=== PATIENT | female | born 1985 | race Caucasian/White ===

== ENCOUNTER 2021-01-10 16:38 | Emergency (ER) | payer MEDICAID ==
--- NOTE | 2021-01-10 16:54 | EDM.PDOC ---
ED HPI GENERAL MEDICAL PROBLEM - General Chief Complaint: General Stated Complaint: CANCER COMPLICATIONS Time Seen by Provider: 01/10/21 16:51 - History of Present Illness INITIAL COMMENTS - FREE TEXT/NARRATIVE: History of present illness: [] The patient is said. She says her fianc throughout today. He had a accessibility lift technician bring her to the backside of the hospital between the cancer center in the employee entrance where she was found. She had been dropped off on the wrong side by a forklift picker and she called admissions and told them that she was on the wrong side of the hospital. She was laying face down and they found her on the sidewalk. She was brought by wheelchair to the emergency department. She is tearful and sad and apologetic. She says 6 months ago she was diagnosed with some sort of cancer all over her body. The diagnosis was made at the [facility] in [facility] where she lived. She said she did not want treatment and she treated her total body pain with alcohol. She says she hurts everywhere and she is suffering. She denies being suicidal. She does feel hopeless and does not have anywhere to go because she is moved from [facility] with her fianc. She says he drinks all the time and is never sober but he throughout today because she drinks a lot of the time and is not happy when she is sober. Review of systems: As per history of present illness and below otherwise all systems reviewed and negative. Past medical history: As per history of present illness and as reviewed below otherwise noncontributory. Surgical history: As per history of present illness and as reviewed below otherwise noncontributory. Social history: No reported history of drug or alcohol abuse. Family history: As per history of present illness and as reviewed below otherwise n oncontributory. Physical exam: Constitutional - well developed, well-nourished and in no acute distress HEENT - normocephalic, no evidence of trauma - external nose and mouth normal - no mass in neck and no JVD - mucosae moist EYES - full EOM, PERRL, no icterus - no evidence of inflammation, injection, or drainage Respiratory - no respiratory distress, equal bilateral expansion, lungs clear to auscultation and no abnormal lung sounds Cardiovascular - Regular Rhythm with S1 and S2 appreciated and no murmur, gallop or rub. GI - abdomen soft without distension or organomegaly - normal bowel sounds - no guard or rebound Musculoskeletal no gross deformity of long bones or joints - no tenderness, swelling or edema Neurologic - Alert and oriented times four - CN II-XII grossly intact - motor sensory and coordination symmetrically normal Psychiatric -depressed and tearful with normal thought content Hematologic - No petechiae or purpura - mucosa appropriate color and sclera not pale - normal nail bed color and refill Integument - no rash or evidence of trauma - normal turgor Diagnostics: [] Therapeutics: [] Impression: [] Plan: [] Definitive disposition and diagnosis as appropriate pending reevaluation and review of above. Whole Body Pain Score (Numeric/FACES): 10 - Related Data Allergies Allergy/AdvReac Type Severity Reaction Status Date / Time No Known Allergies Allergy Verified 01/10/21 17:00 Home Meds: Home Meds Levothyroxine Sodium [Synthroid] 1 tab PO DAILY 01/10/21 [History] nitrofurantoin macrocrystaL [Macrodantin] 100 mg PO BID 7 Days #28 cap 01/10/21 [Rx] ED ROS GENERAL - Review of Systems Review Of Systems: Comprehensive ROS is negative, except as noted in HPI. ED EXAM, GENERAL - Physical Exam Exam: See Below Free Text/Narrative:: My physical exam as in the HPI #1 Interpretation EKG Interpretation Comments: EKG sinus tachycardia heart rate 102 HI 139 [place] [address] and T. Impression normal Course - Vital Signs Text/Narrative:: Patient's fianc came to pick her up Last Recorded V/S: Last Vital Signs Temp 36.0 C L 01/10/21 16:55 Pulse 114 H 01/10/21 16:55 Resp 19 01/10/21 16:55 BP 157/111 H 01/10/21 16:55 Pulse Ox 96 01/10/21 16:55 - Orders/Labs/Meds Orders: Active Orders 24 hr Category Date Time Status EKG Documentation Completion [RC] AM Care 01/10/21 16:52 Active CULTURE URINE [MREF] Stat Lab 01/10/21 18:25 Ordered DRUG SCREEN, URINE [URCHEM] Stat Lab 01/10/21 16:53 Ordered Labs: Laboratory Tests 01/10/21 01/10/21 01/10/21 Range/Units 17:00 17:00 17:00 WBC 4.65 (4.0-11.0) K/uL RBC 3.50 L (4.30-5.90) M/uL Hgb 12.7 (12.0-16.0) g/dL Hct 36.6 (36.0-46.0) % MCV 104.6 H (80.0-98.0) fL MCH 36.3 H (27.0-32.0) pg MCHC 34.7 (31.0-37.0) g/dL RDW Std Deviation 50.9 (28.0-62.0) fl RDW Coeff of Micah 14 (11.0-15.0) % Plt Count 145 L (150-400) K/uL MPV 8.50 (7.40-12.00) fL Neut % (Auto) 69.9 (48.0-80.0) % Lymph % (Auto) 21.7 (16.0-40.0) % Sanders % (Auto) 7.1 (0.0-15.0) % Eos % (Auto) 0.2 (0.0-7.0) % Baso % (Auto) 1.1 (0.0-1.5) % Neut # (Auto) 3.3 (1.4-5.7) K/uL Lymph # (Auto) 1.0 (0.6-2.4) K/uL Sanders # (Auto) 0.3 (0.0-0.8) K/uL Eos # (Auto) 0.0 (0.0-0.7) K/uL Baso # (Auto) 0.1 (0.0-0.1) K/uL Nucleated RBC % 0.0 /100WBC Nucleated RBCs # 0 K/uL Sodium 145 (136-145) mmol/L Potassium 2.9 L (3.5-5.1) mmol/L Chloride 104 (98-107) mmol/L Carbon Dioxide 25.8 (21.0-32.0) mmol/L BUN 3 L (7.0-18.0) mg/dL Creatinine 0.6 (0.6-1.0) mg/dL Est Cr Clr Drug Dosing 107.23 mL/min Estimated GFR (MDRD) > 60.0 ml/min Glucose 244 H (74-106) mg/dL Calcium 7.7 L (8.5-10.1) mg/dL Total Bilirubin 0.4 (0.2-1.0) mg/dL AST 409 H (15-37) IU/L ALT 132 H (14-63) IU/L Alkaline Phosphatase 203 H (46-116) U/L Troponin I < 0.050 (0.000-0.056) ng/mL Total Protein 7.0 (6.4-8.2) g/dL Albumin 3.6 (3.4-5.0) g/dL Globulin 3.4 (2.6-4.0) g/dL Albumin/Globulin Ratio 1.1 (0.9-1.6) HCG, Qual NEGATIVE (NEG) Urine Color Urine Appearance Urine pH (5.0-8.0) Ur Specific Rockwell (1.001-1.035) Urine Protein (NEGATIVE) mg/dL Urine Glucose (UA) (NEGATIVE) mg/dL Urine Ketones (NEGATIVE) mg/dL Urine Occult Blood (NEGATIVE) Urine Nitrite (NEGATIVE) Urine Bilirubin (NEGATIVE) Urine Urobilinogen (<2.0) EU/dL Ur Leukocyte Esterase (NEGATIVE) Urine RBC (0-2/HPF) Urine WBC (0-5/HPF) Ur Epithelial Cells (NONE-FEW) Urine Bacteria (NEGATIVE) Ethyl Alcohol 493 mg/dL 01/10/21 Range/Units 18:05 WBC (4.0-11.0) K/uL RBC (4.30-5.90) M/uL Hgb (12.0-16.0) g/dL Hct (36.0-46.0) % MCV (80.0-98.0) fL MCH (27.0-32.0) pg MCHC (31.0-37.0) g/dL RDW Std Deviation (28.0-62.0) fl RDW Coeff of Micah (11.0-15.0) % Plt Count (150-400) K/uL MPV (7.40-12.00) fL Neut % (Auto) (48.0-80.0) % Lymph % (Auto) (16.0-40.0) % Sanders % (Auto) (0.0-15.0) % Eos % (Auto) (0.0-7.0) % Baso % (Auto) (0.0-1.5) % Neut # (Auto) (1.4-5.7) K/uL Lymph # (Auto) (0.6-2.4) K/uL Sanders # (Auto) (0.0-0.8) K/uL Eos # (Auto) (0.0-0.7) K/uL Baso # (Auto) (0.0-0.1) K/uL Nucleated RBC % /100WBC Nucleated RBCs # K/uL Sodium (136-145) mmol/L Potassium (3.5-5.1) mmol/L Chloride (98-107) mmol/L Carbon Dioxide (21.0-32.0) mmol/L BUN (7.0-18.0) mg/dL Creatinine (0.6-1.0) mg/dL Est Cr Clr Drug Dosing mL/min Estimated GFR (MDRD) ml/min Glucose (74-106) mg/dL Calcium (8.5-10.1) mg/dL Total Bilirubin (0.2-1.0) mg/dL AST (15-37) IU/L ALT (14-63) IU/L Alkaline Phosphatase (46-116) U/L Troponin I (0.000-0.056) ng/mL Total Protein (6.4-8.2) g/dL Albumin (3.4-5.0) g/dL Globulin (2.6-4.0) g/dL Albumin/Globulin Ratio (0.9-1.6) HCG, Qual (NEG) Urine Color YELLOW Urine Appearance SLT CLOUDY Urine pH 7.0 (5.0-8.0) Ur Specific Rockwell <= 1.005 (1.001-1.035) Urine Protein NEGATIVE (NEGATIVE) mg/dL Urine Glucose (UA) NEGATIVE (NEGATIVE) mg/dL Urine Ketones NEGATIVE (NEGATIVE) mg/dL Urine Occult Blood TRACE-INTACT H (NEGATIVE) Urine Nitrite POSITIVE H (NEGATIVE) Urine Bilirubin NEGATIVE (NEGATIVE) Urine Urobilinogen 0.2 (<2.0) EU/dL Ur Leukocyte Esterase MODERATE H (NEGATIVE) Urine RBC 0-2 (0-2/HPF) Urine WBC 5-10 (0-5/HPF) Ur Epithelial Cells FEW (NONE-FEW) Urine Bacteria 3+ H (NEGATIVE) Ethyl Alcohol mg/dL Meds: Medications Discontinued Medications Generic Name Dose Route Start Last Admin Trade Name Cee PRN Reason Stop Dose Admin Potassium Chloride 40 meq 01/10/21 17:33 01/10/21 18:12 Potassium Chloride 20 Meq Tab.Er PO 01/10/21 17:34 Not Given ONETIME ONE Potassium Chloride Confirm 01/10/21 18:09 01/10/21 18:14 Potassium Chloride 10% 20 Meq/15 Ml Soln 30 Ml Ud Cup Administered 01/10/21 18:10 Not Given Dose 40 meq .ROUTE .STK-MED ONE Potassium Chloride 40 meq 01/10/21 18:12 01/10/21 18:14 Potassium Chloride 10% 20 Meq/15 Ml Soln 15 Ml Ud Cup PO 01/10/21 18:13 40 meq ONETIME ONE Administration Departure - Departure Time of Disposition: 18:26 Disposition: Home, Self-Care 01 Condition: Good Clinical Impression: Alcohol intoxication, Transaminitis, Myalgia, Hypokalemia, Urinary tract infection - Discharge Information Prescriptions: nitrofurantoin macrocrystaL [Macrodantin] 100 mg PO BID 7 Days #28 cap Instructions: Hypokalemia, Muscle Pain, Adult, Alcohol Intoxication, [id number], Urinary Tract Infection, Adult, [id number] Referrals: PCP,Not In Area [Primary Care Provider] - Forms: ED Department Discharge Additional Instructions: Contact AA or psychiatry evaluation at [facility] Address: [address] [place] [address] Hours: walk in 9 AM M-F Get your records from your cancer diagnosis and have them sent to the primary care. [facility] [address] [place] [address] [address] The following information is given to patients seen in the emergency department who are being discharged to home. This information is to outline your options for follow-up care. We provide all patients seen in our emergency department with a follow-up referral. The need for follow-up, as well as the timing and circumstances, are variable depending upon the specifics of your emergency department visit. If you don't have a primary care physician on staff, we will provide you with a referral. We always advise you to contact your personal physician following an emergency department visit to inform them of the circumstance of the visit and for follow-up with them and/or the need for any referrals to a consulting specialist. The emergency department will also refer you to a specialist when appropriate. This referral assures that you have the opportunity for follow-up care with a specialist. All of these measure are taken in an effort to provide you with optimal care, which includes your follow-up. Under all circumstances we always encourage you to contact your private physician who remains a resource for coordinating your care. When calling for follow-up care, please make the office aware that this follow-up is from your recent emergency room visit. If for any reason you are refused follow-up, please contact the [facility] Emergency Department at and asked to speak to the emergency department charge nurse. Sepsis Event Note (ED) - Focused Exam Vital Signs: Vital Signs Temp Pulse Resp BP Pulse Ox 01/10/21 16:55 36.0 C L 114 H 19 157/111 H 96 - My Orders Last 24 Hours: My Active Orders 01/10/21 16:52 EKG Documentation Completion [RC] AM 01/10/21 16:53 DRUG SCREEN, URINE [URCHEM] Stat 01/10/21 18:25 CULTURE URINE [MREF] Stat - Assessment/Plan Last 24 Hours: My Active Orders 01/10/21 16:52 EKG Documentation Completion [RC] AM 01/10/21 16:53 DRUG SCREEN, URINE [URCHEM] Stat 01/10/21 18:25 CULTURE URINE [MREF] Stat
[2021-01-10 17:31] LABS: BLOOD UREA NITROGEN,BUN 3 mg/dL (7.0-18.0); CARBON DIOXIDE,CO2 25.8 mmol/L (21.0-32.0); CHLORIDE,CL 104 mmol/L (98-107); GLUCOSE RANDOM 244 mg/dL (74-106); POTASSIUM,K 2.9 mmol/L (3.5-5.1); SODIUM,NA 145 mmol/L (136-145)
--- NOTE | 2021-01-10 18:03 | CR ---
For Patients: As a result of the Cures Act, medical imaging exams and procedure reports are released immediately into your electronic medical record. You may view this report before your referring provider. If you have questions, please contact your health care provider. INDICATION: Chest pain. TECHNIQUE: Portable AP chest radiograph. COMPARISON: None available. FINDINGS: Low lung volumes with vascular crowding. No focal pulmonary opacity, pneumothorax, or pleural effusion. Normal cardiac and mediastinal contours. IMPRESSION: No acute cardiopulmonary findings. Dictated by Baltazar Eugene MD @ 01/10/2021 6:01:23 PM Dictated by: Baltazar Eugene MD @ 01/10/2021 18:01:28 (Electronically Signed)
[2021-01-10] MEDS: Potassium Chloride 20 MEQ Tab.ER PO ONE ×2 (18:05→18:12)
[2021-01-10] MEDS ORDERED: Potassium Chloride 10% 20 MEQ/15 ML Soln 30 ML UD Cup ONE (18:09)
[2021-01-10] MEDS ORDERED: Potassium Chloride 10% 20 MEQ/15 ML Soln 15 ML UD Cup PO ONE (18:12)
== END 2021-01-10 18:34 | disposition home or self-care (01) ==
LOC: MW.ED 16:38
DX: N39.0 Urinary tract infection, site not specified (principal); F10.129 Alcohol abuse with intoxication, unspecified; E87.6 Hypokalemia; R74.01 Elevation of levels of liver transaminase levels; Y90.8 Blood alcohol level of 240 mg/100 ml or more; Z79.899 Other long term (current) drug therapy
CPT/HCPCS: 36415; 71045; 80053; 80305; 80307; 81001; 84484; 84703; 85025; 87086; 87088; 87186; 93005; 99284; A9270; 93010

== ENCOUNTER 2021-05-01 16:21 | Emergency (ER) | payer SELFPAY ==
--- NOTE | 2021-05-01 17:16 | EDM.PDOC ---
ED HPI GENERAL MEDICAL PROBLEM - General Chief Complaint: Drug or Alcohol Abuse Stated Complaint: INTOXICATION Time Seen by Provider: 05/01/21 17:08 - History of Present Illness INITIAL COMMENTS - FREE TEXT/NARRATIVE: History of present illness: [] Patient has chest pain. She attributed to anxiety. She has had it for 2 days. She has been drinking periods. She wants to stop drinking. AA did not help her because they only talk about drinking all about her emotional problems. She is never been evaluated at [facility]. She does have anxiety does not sleep well and says she is quite tense and thinks this is because of her pain. Pains in the right side worse with movement but not worse with activity. There is no associated diaphoresis or nausea. Patient does have minimal shortness of breath. The patient vapes but does not smoke. She is borderline diabetic. She thinks she has hypertension high cholesterol. She had negative family history of coronary vessel disease and stroke. Review of systems: As per history of present illness and below otherwise all systems reviewed and negative. Past medical history: As per history of present illness and as reviewed below otherwise noncontributory. Surgical history: As per history of present illness and as reviewed below otherwise noncontributory. Social history: No reported history of drug or alcohol abuse. Family history: As per history of present illness and as reviewed below otherwise noncontributory. Physical exam: Constitutional - well developed, well-nourished and in no acute distress HEENT - normocephalic, no evidence of trauma - external nose and mouth normal - no mass in neck and no JVD - mucosae moist EYES - full EOM, PERRL, no icterus - no evidence of inflammation, injection, or drainage Respiratory - no respiratory distress, equal bilateral expansion, lungs clear to auscultation and no abnormal lung sounds Cardiovascular - Regular Rhythm with S1 and S2 appreciated and no murmur, gallop or rub. GI - abdomen soft without distension or organomegaly - normal bowel sounds - no guard or rebound Musculoskeletal tenderness at the right sternal border reproduces her pain-no gross deformity of long bones or joints - no tenderness, swelling or edema Neurologic - Alert and oriented times four - CN II-XII grossly intact - motor sensory and coordination symmetrically normal Psychiatric - appropriate mood and affect with normal thought content Hematologic - No petechiae or purpura - mucosa appropriate color and sclera not pale - normal nail bed color and refill Integument - no rash or evidence of trauma - normal turgor Diagnostics: [] Therapeutics: [] Impression: [] Plan: [] Definitive disposition and diagnosis as appropriate pending reevaluation and review of above. chest Pain Score (Numeric/FACES): 3 - Related Data Allergies Allergy/AdvReac Type Severity Reaction Status Date / Time No Known Allergies Allergy Verified 01/10/21 17:00 Home Meds: Home Meds Levothyroxine Sodium [Synthroid] 1 tab PO DAILY 01/10/21 [History] nitrofurantoin macrocrystaL [Macrodantin] 100 mg PO BID 7 Days #28 cap 01/10/21 [Rx] hydrOXYzine HCL [Atarax] 25 mg PO TID PRN #30 tablet 05/01/21 [Rx] Past Medical History Endocrine/Metabolic History: Reports: Hypothyroidism Other Oncologic History: Pt states she has "cancer affecting her whole body." - Infectious Disease History Infectious Disease History: Reports: None Social & Family History - Family History Family Medical History: No Pertinent Family History ED ROS GENERAL - Review of Systems Review Of Systems: Comprehensive ROS is negative, except as noted in HPI. ED EXAM, GENERAL - Physical Exam Exam: See Below Free Text/Narrative:: My physical exam is in the HPI #1 Interpretation EKG Interpretation Comments: EKG done on 05/01/2021 at 4:36 PM shows sinus rhythm with a heart rate 98 a MO 144 QT duration 460 axis 38 low voltage but borderline T abnormalities especially in the lateral leads compared to 01/10/2021 no change impression no acute Course - Vital Signs Text/Narrative:: Patient eloped shortly before 1820. She did not tell me she was leaving. She most likely has costochondritis and discharge instructions are written. Atarax was sent to the pharmacy. I will get her lab reports and call her back but te chnically her chart will be incomplete because she left before she had a reassessment and vital signs reestablished. Last Recorded V/S: Last Vital Signs Temp 35.8 C L 05/01/21 16:33 Pulse 111 H 05/01/21 16:33 Resp 20 05/01/21 16:33 BP 124/71 05/01/21 16:33 Pulse Ox 95 05/01/21 16:33 - Orders/Labs/Meds Orders: Active Orders 24 hr Category Date Time Status Chest 1V Frontal [CR] Stat Exams 05/01/21 17:22 Ordered CBC WITH AUTO DIFF [HEME] Stat Lab 05/01/21 17:21 Ordered COMPREHENSIVE METABOLIC PN,CMP [CHEM] Stat Lab 05/01/21 17:21 Ordered ETHANOL BLOOD MEDICAL [CHEM] Stat Lab 05/01/21 17:21 Ordered HCG QUALITATIVE,SERUM [CHEM] Stat Lab 05/01/21 17:21 Ordered LIPASE [CHEM] Stat Lab 05/01/21 17:21 Ordered MAGNESIUM [CHEM] Stat Lab 05/01/21 17:21 Ordered TROPONIN I [CHEM] Stat Lab 05/01/21 17:21 Ordered Sodium Chloride 0.9% [Saline Flush] Med 05/01/21 17:21 Active 10 ml FLUSH ASDIRECTED PRN Sodium Chloride 0.9% [Saline Flush] Med 05/01/21 17:21 Active 2.5 ml FLUSH ASDIRECTED PRN Saline Lock Insert [OM.PC] Stat Oth 05/01/21 17:21 Ordered Medication Orders Sodium Chloride (Sodium Chloride 0.9% 10 Ml Syringe) 10 ml FLUSH ASDIRECTED PRN PRN Reason: Keep Vein Open Sodium Chloride (Sodium Chloride 0.9% 2.5 Ml Syringe) 2.5 ml FLUSH ASDIRECTED PRN PRN Reason: Keep Vein Open Labs: Laboratory Tests 05/01/21 Range/Units 18:08 Urine Opiates Screen NEGATIVE (NEGATIVE) Ur Oxycodone Screen NEGATIVE (NEGATIVE) Urine Methadone Screen NEGATIVE (NEGATIVE) Ur Barbiturates Screen NEGATIVE (NEGATIVE) Ur Phencyclidine Scrn NEGATIVE (NEGATIVE) Ur Amphetamine Screen NEGATIVE (NEGATIVE) U Methamphetamines Scrn NEGATIVE (NEGATIVE) U Benzodiazepines Scrn NEGATIVE (NEGATIVE) U Cocaine Metab Screen NEGATIVE (NEGATIVE) U Marijuana (THC) Screen NEGATIVE (NEGATIVE) Meds: Medications Generic Name Dose Route Start Last Admin Trade Name Freq PRN Reason Stop Dose Admin Sodium Chloride 10 ml 05/01/21 17:21 Sodium Chloride 0.9% 10 Ml Syringe FLUSH ASDIRECTED PRN Keep Vein Open Sodium Chloride 2.5 ml 05/01/21 17:21 Sodium Chloride 0.9% 2.5 Ml Syringe FLUSH ASDIRECTED PRN Keep Vein Open Discontinued Medications Generic Name Dose Route Start Last Admin Trade Name Freq PRN Reason Stop Dose Admin Folic Acid 1 mg 05/01/21 17:22 Folic Acid 50 Mg/10 Ml Mdv IV 05/01/21 17:23 STAT STA Hydroxyzine HCl 25 mg 05/01/21 17:49 Hydroxyzine Hcl 25 Mg Tab PO 05/01/21 17:50 ONETIME ONE Thiamine HCl 100 mg/ Sodium 101 mls @ 202 mls/hr 05/01/21 17:22 Chloride IV 05/01/21 17:23 ONETIME ONE Naproxen 500 mg 05/01/21 17:49 Naproxen 500 Mg Tab PO 05/01/21 17:50 ONETIME ONE Departure - Departure Time of Disposition: 18:24 Disposition: Eloped 07 Condition: Good Clinical Impression: Alcohol abuse, Chest wall pain - Discharge Information Prescriptions: hydrOXYzine HCL [Atarax] 25 mg PO TID PRN #30 tablet PRN Reason: Anxiety Instructions: Alcohol Use Disorder, Chest Wall Pain, [id number] Referrals: PCP,None [Primary Care Provider] - Forms: ED Department Discharge Additional Instructions: I switched her pharmacy to in the [facility] because I did not think you to have time to get to [facility] before they closed. Please follow-up with the psychiatric referral service here in [facility]. [facility] Address: [address] [place] [id number] Hours: walk in 9 AM M-F Please use anti-inflammatory medicine such as ibuprofen or naproxen for pain. Heat the chest wall may help. You should rest as best you can and I prescribed a nonaddictive sedative to help you relax [facility] [address] [place] [address] [id number] [address] [address] The following information is given to patients seen in the emergency department who are being discharged to home. This information is to outline your options for follow-up care. We provide all patients seen in our emergency department with a follow-up referral. The need for follow-up, as well as the timing and circumstances, are variable depending upon the specifics of your emergency department visit. If you don't have a primary care physician on staff, we will provide you with a referral. We always advise you to contact your personal physician following an emergency department visit to inform them of the circumstance of the visit and for follow-up with them and/or the need for any referrals to a consulting specialist. The emergency department will also refer you to a specialist when appropriate. This referral assures that you have the opportunity for follow-up care with a specialist. All of these measure are taken in an effort to provide you with optimal care, which includes your follow-up. Under all circumstances we always encourage you to contact your private physician who remains a resource for coordinating your care. When calling for follow-up care, please make the office aware that this follow-up is from your recent emergency room visit. If for any reason you are refused follow-up, please contact the [facility] Emergency Department at and asked to speak to the emergency department charge nurse. Sepsis Event Note (ED) - Evaluation Sepsis Screening Result: No Definite Risk - Focused Exam Vital Signs: Vital Signs Temp Pulse Resp BP Pulse Ox 05/01/21 16:33 35.8 C L 111 H 20 124/71 95 - My Orders Last 24 Hours: My Active Orders 05/01/21 17:21 CBC WITH AUTO DIFF [HEME] Stat COMPREHENSIVE METABOLIC PN,CMP [CHEM] Stat ETHANOL BLOOD MEDICAL [CHEM] Stat HCG QUALITATIVE,SERUM [CHEM] Stat LIPASE [CHEM] Stat MAGNESIUM [CHEM] Stat TROPONIN I [CHEM] Stat Sodium Chloride 0.9% [Saline Flush] 10 ml FLUSH ASDIRECTED PRN Sodium Chloride 0.9% [Saline Flush] 2.5 ml FLUSH ASDIRECTED PRN Saline Lock Insert [OM.PC] Stat 05/01/21 17:22 Chest 1V Frontal [CR] Stat - Assessment/Plan Last 24 Hours: My Active Orders 05/01/21 17:21 CBC WITH AUTO DIFF [HEME] Stat COMPREHENSIVE METABOLIC PN,CMP [CHEM] Stat ETHANOL BLOOD MEDICAL [CHEM] Stat HCG QUALITATIVE,SERUM [CHEM] Stat LIPASE [CHEM] Stat MAGNESIUM [CHEM] Stat TROPONIN I [CHEM] Stat Sodium Chloride 0.9% [Saline Flush] 10 ml FLUSH ASDIRECTED PRN Sodium Chloride 0.9% [Saline Flush] 2.5 ml FLUSH ASDIRECTED PRN Saline Lock Insert [OM.PC] Stat 05/01/21 17:22 Chest 1V Frontal [CR] Stat
[2021-05-01] MEDS ORDERED: Sodium Chloride 0.9% 10 ML Syringe FLUSH PRN (17:21)
[2021-05-01] MEDS ORDERED: Sodium Chloride 0.9% 2.5 ML Syringe FLUSH PRN (17:21)
[2021-05-01] MEDS ORDERED: Folic Acid 50 MG/10 ML MDV IV STA (17:22)
[2021-05-01] MEDS ORDERED: Thiamine 100 MG in Sodium Chloride 0.9% 100 ML IV ONE (17:22)
[2021-05-01] MEDS ORDERED: Naproxen 500 MG Tab PO ONE (17:49)
[2021-05-01] MEDS ORDERED: hydrOXYzine HCl 25 MG Tab PO ONE (17:49)
== END 2021-05-01 18:24 | disposition left against medical advice (07) ==
LOC: MW.ED 16:21
DX: R07.89 Other chest pain (principal); F10.10 Alcohol abuse, uncomplicated; E03.9 Hypothyroidism, unspecified; F17.290 Nicotine dependence, other tobacco product, uncomplicated; Z79.899 Other long term (current) drug therapy
CPT/HCPCS: 80305-QW; 93005; 99285-25

== ENCOUNTER 2021-05-26 23:35 | Emergency (ER) | payer SELFPAY ==
[2021-05-26] MEDS ORDERED: Sodium Chloride 0.9% 1,000 ML IV ONE (23:39)
[2021-05-26] MEDS ORDERED: Sodium Chloride 0.9% 10 ML Syringe FLUSH PRN (23:39)
[2021-05-26] MEDS ORDERED: Sodium Chloride 0.9% 2.5 ML Syringe FLUSH PRN (23:39)
--- NOTE | 2021-05-26 23:43 | EDM.PDOC ---
ED HPI GENERAL MEDICAL PROBLEM - General Stated Complaint: SUICIDAL IDEATION, CHEST PAIN Time Seen by Provider: 05/26/21 23:39 - History of Present Illness INITIAL COMMENTS - FREE TEXT/NARRATIVE: History of present illness: Patient called 911 and said she was thinking about killing herself. She had a plan. She is depressed. She has situational depression because she moved here in October of this year with a boyfriend. He is not getting letter stating any longer and she says they broke up tonight. She blames her self. She says that because of her alcoholism. She started drinking heavily when she was 13 years of age and she is drunk ever since. She does remember ever getting sober. She has had reduction in alcohol intake resulting in seizures and significant withdrawal tremors. Patient now is tearful and sad and says she is going to kill himself by taking Tylenol. Patient has pain in left shoulder worse with range of motion and touching it. It is an anterior and superior left shoulder. She had a fall 2 days ago and says she injured her shoulder at that time. Patient has 2 prior overdose attempts. She had not done anything like that for years. She plans to move to [place] to be with her mother and sister when she is through this crisis. Review of systems: As per history of present illness and below otherwise all systems reviewed and negative. Past medical history: Patient has a patent foramen ovale. As per history of present illness and as reviewed below otherwise noncontributory. Surgical history: As per history of present illness and as reviewed below otherwise noncontributory. Social history: No reported history of drug or alcohol abuse. Family history: As per history of present illness and as reviewed below otherwise noncontributory. Physical exam: Constitutional - well developed, well-nourished and in no acute distress HEENT - normocephalic, no evidence of trauma - external nose and mouth normal - no mass in neck and no JVD - mucosae moist EYES - full EOM, PERRL, no icterus - no evidence of inflammation, injection, or drainage Respiratory - no respiratory distress, equal bilateral expansion, lungs clear to auscultation and no abnormal lung sounds Cardiovascular - Regular Rhythm with S1 and S2 appreciated and no murmur, gallop or rub. GI - abdomen soft without distension or organomegaly - normal bowel sounds - no guard or rebound Musculoskeletal no gross deformity of long bones or joints - no tenderness, swelling or edema Neurologic - Alert and oriented times four - CN II-XII grossly intact - motor sensory and coordination symmetrically normal Psychiatric -depressed mood and normal affect with normal thought content and no psychotic features. Patient is depressed and thinking about suicide with a plan. Hematologic - No petechiae or purpura - mucosa appropriate color and sclera not pale - normal nail bed color and refill Integument - no rash or evidence of trauma - normal turgor Diagnostics: [] Therapeutics: [] Impression: [] Plan: [] Definitive disposition and diagnosis as appropriate pending reevaluation and review of above. - Related Data Allergies Allergy/AdvReac Type Severity Reaction Status Date / Time No Known Allergies Allergy Verified 05/26/21 23:49 Home Meds: Home Meds . [No Known Home Meds] 05/26/21 [History] Past Medical History - Past Health History Medical/Surgical History: Denies Medical/Surgical History Endocrine/Metabolic History: Reports: Hypothyroidism Other Oncologic History: Pt states she has "cancer affecting her whole body." - Infectious Disease History Infectious Disease History: Reports: None Social & Family History - Family History Family Medical History: No Pertinent Family History - Caffeine Use Caffeine Use: Reports: Coffee ED ROS GENERAL - Review of Systems Review Of Systems: Comprehensive ROS is negative, except as noted in HPI. ED EXAM, GENERAL - Physical Exam Exam: See Below Free Text/Narrative:: My physical exam is in the HPI #1 Interpretation EKG Interpretation Comments: EKG done 05/26/2021 11:39 PM shows a sinus tachycardia with a heart rate of 103 IN 142 QT 483 QRS [address] and T impression normal except for rate. Course - Vital Signs Last Recorded V/S: Last Vital Signs Temp 36.8 C 05/26/21 23:46 Pulse 91 05/27/21 02:30 Resp 16 05/27/21 02:30 BP 104/59 L 05/27/21 02:30 Pulse Ox 94 L 05/27/21 02:30 - Orders/Labs/Meds Orders: Active Orders 24 hr Category Date Time Status CULTURE URINE [MREF] Stat Lab 05/27/21 02:33 Ordered Sodium Chloride 0.9% [Saline Flush] Med 05/26/21 23:39 Active 10 ml FLUSH ASDIRECTED PRN Sodium Chloride 0.9% [Saline Flush] Med 05/26/21 23:39 Active 2.5 ml FLUSH ASDIRECTED PRN Saline Lock Insert [OM.PC] Stat Oth 05/26/21 23:39 Ordered Medication Orders Sodium Chloride (Sodium Chloride 0.9% 10 Ml Syringe) 10 ml FLUSH ASDIRECTED PRN PRN Reason: Keep Vein Open Last Admin: 05/26/21 23:57 Dose: 10 ml Documented by: KINZA Sodium Chloride (Sodium Chloride 0.9% 2.5 Ml Syringe) 2.5 ml FLUSH ASDIRECTED PRN PRN Reason: Keep Vein Open Last Admin: 05/26/21 23:57 Dose: 2.5 ml Documented by: KINZA Labs: Laboratory Tests 05/26/21 05/26/21 05/26/21 Range/Units 23:45 23:45 23:45 WBC (4.0-11.0) K/uL RBC (4.30-5.90) M/uL Hgb (12.0-16.0) g/dL Hct (36.0-46.0) % MCV (80.0-98.0) fL MCH (27.0-32.0) pg MCHC (31.0-37.0) g/dL RDW Std Deviation (28.0-62.0) fl RDW Coeff of Micah (11.0-15.0) % Plt Count (150-400) K/uL MPV (7.40-12.00) fL Neut % (Auto) (48.0-80.0) % Lymph % (Auto) (16.0-40.0) % Burt % (Auto) (0.0-15.0) % Eos % (Auto) (0.0-7.0) % Baso % (Auto) (0.0-1.5) % Neut # (Auto) (1.4-5.7) K/uL Lymph # (Auto) (0.6-2.4) K/uL Burt # (Auto) (0.0-0.8) K/uL Eos # (Auto) (0.0-0.7) K/uL Baso # (Auto) (0.0-0.1) K/uL Nucleated RBC % /100WBC Nucleated RBCs # K/uL Sodium (136-145) mmol/L Potassium (3.5-5.1) mmol/L Chloride (98-107) mmol/L Carbon Dioxide (21.0-32.0) mmol/L BUN (7.0-18.0) mg/dL Creatinine (0.6-1.0) mg/dL Est Cr Clr Drug Dosing mL/min Estimated GFR (MDRD) ml/min Glucose (74-106) mg/dL Calcium (8.5-10.1) mg/dL Magnesium (1.8-2.4) mg/dL Total Bilirubin (0.2-1.0) mg/dL AST (15-37) IU/L ALT (14-63) IU/L Alkaline Phosphatase (46-116) U/L Total Protein (6.4-8.2) g/dL Albumin (3.4-5.0) g/dL Globulin (2.6-4.0) g/dL Albumin/Globulin Ratio (0.9-1.6) Lipase (73-393) U/L Free T4 (0.76-1.46) ng/dL Free T3 (2.18-3.98) pg/mL TSH, Ultra Sensitive (0.36-3.74) uIU/mL HCG, Qual (NEG) Urine Color YELLOW Urine Appearance SLT CLOUDY Urine pH 6.0 (5.0-8.0) Ur Specific Salem <= 1.005 (1.001-1.035) Urine Protein NEGATIVE (NEGATIVE) mg/dL Urine Glucose (UA) NEGATIVE (NEGATIVE) mg/dL Urine Ketones NEGATIVE (NEGATIVE) mg/dL Urine Occult Blood TRACE-LYSED H (NEGATIVE) Urine Nitrite POSITIVE H (NEGATIVE) Urine Bilirubin NEGATIVE (NEGATIVE) Urine Urobilinogen 0.2 (<2.0) EU/dL Ur Leukocyte Esterase MODERATE H (NEGATIVE) Urine RBC 0-1 (0-2/HPF) Urine WBC 2-5 (0-5/HPF) Ur Epithelial Cells FEW (NONE-FEW) Urine Bacteria 1+ H (NEGATIVE) Salicylates (0-20) mg/dL Urine Opiates Screen NEGATIVE (NEGATIVE) Ur Oxycodone Screen NEGATIVE (NEGATIVE) Urine Methadone Screen NEGATIVE (NEGATIVE) Acetaminophen ug/mL Ur Barbiturates Screen NEGATIVE (NEGATIVE) Ur Phencyclidine Scrn NEGATIVE (NEGATIVE) Ur Amphetamine Screen NEGATIVE (NEGATIVE) U Methamphetamines Scrn NEGATIVE (NEGATIVE) U Benzodiazepines Scrn NEGATIVE (NEGATIVE) U Cocaine Metab Screen NEGATIVE (NEGATIVE) U Marijuana (THC) Screen NEGATIVE (NEGATIVE) Ethyl Alcohol mg/dL SARS-CoV-2 RNA (IBETH) NEGATIVE (NEGATIVE) 05/26/21 05/26/21 05/26/21 Range/Units 23:50 23:50 23:50 WBC 7.71 (4.0-11.0) K/uL RBC 4.66 (4.30-5.90) M/uL Hgb 16.5 H (12.0-16.0) g/dL Hct 46.9 H (36.0-46.0) % MCV 100.6 H (80.0-98.0) fL MCH 35.4 H (27.0-32.0) pg MCHC 35.2 (31.0-37.0) g/dL RDW Std Deviation 45.8 (28.0-62.0) fl RDW Coeff of Micah 13 (11.0-15.0) % Plt Count 302 (150-400) K/uL MPV 8.80 (7.40-12.00) fL Neut % (Auto) 55.8 (48.0-80.0) % Lymph % (Auto) 37.9 (16.0-40.0) % Burt % (Auto) 5.2 (0.0-15.0) % Eos % (Auto) 0.3 (0.0-7.0) % Baso % (Auto) 0.8 (0.0-1.5) % Neut # (Auto) 4.3 (1.4-5.7) K/uL Lymph # (Auto) 2.9 H (0.6-2.4) K/uL Burt # (Auto) 0.4 (0.0-0.8) K/uL Eos # (Auto) 0.0 (0.0-0.7) K/uL Baso # (Auto) 0.1 (0.0-0.1) K/uL Nucleated RBC % 0.0 /100WBC Nucleated RBCs # 0 K/uL Sodium 143 (136-145) mmol/L Potassium 2.9 L (3.5-5.1) mmol/L Chloride 100 (98-107) mmol/L Carbon Dioxide 29.6 (21.0-32.0) mmol/L BUN 3 L (7.0-18.0) mg/dL Creatinine 0.7 (0.6-1.0) mg/dL Est Cr Clr Drug Dosing 91.02 mL/min Estimated GFR (MDRD) > 60.0 ml/min Glucose 144 H (74-106) mg/dL Calcium 8.5 (8.5-10.1) mg/dL Magnesium 1.8 (1.8-2.4) mg/dL Total Bilirubin 0.6 (0.2-1.0) mg/dL AST 82 H (15-37) IU/L ALT 40 (14-63) IU/L Alkaline Phosphatase 179 H (46-116) U/L Total Protein 9.4 H (6.4-8.2) g/dL Albumin 4.0 (3.4-5.0) g/dL Globulin 5.4 H (2.6-4.0) g/dL Albumin/Globulin Ratio 0.7 L (0.9-1.6) Lipase 66 L (73-393) U/L Free T4 (0.76-1.46) ng/dL Free T3 (2.18-3.98) pg/mL TSH, Ultra Sensitive 11.65 H (0.36-3.74) uIU/mL HCG, Qual NEGATIVE (NEG) Urine Color Urine Appearance Urine pH (5.0-8.0) Ur Specific Salem (1.001-1.035) Urine Protein (NEGATIVE) mg/dL Urine Glucose (UA) (NEGATIVE) mg/dL Urine Ketones (NEGATIVE) mg/dL Urine Occult Blood (NEGATIVE) Urine Nitrite (NEGATIVE) Urine Bilirubin (NEGATIVE) Urine Urobilinogen (<2.0) EU/dL Ur Leukocyte Esterase (NEGATIVE) Urine RBC (0-2/HPF) Urine WBC (0-5/HPF) Ur Epithelial Cells (NONE-FEW) Urine Bacteria (NEGATIVE) Salicylates (0-20) mg/dL Urine Opiates Screen (NEGATIVE) Ur Oxycodone Screen (NEGATIVE) Urine Methadone Screen (NEGATIVE) Acetaminophen ug/mL Ur Barbiturates Screen (NEGATIVE) Ur Phencyclidine Scrn (NEGATIVE) Ur Amphetamine Screen (NEGATIVE) U Methamphetamines Scrn (NEGATIVE) U Benzodiazepines Scrn (NEGATIVE) U Cocaine Metab Screen (NEGATIVE) U Marijuana (THC) Screen (NEGATIVE) Ethyl Alcohol 397 mg/dL SARS-CoV-2 RNA (IBETH) (NEGATIVE) 05/26/21 Range/Units 23:50 WBC (4.0-11.0) K/uL RBC (4.30-5.90) M/uL Hgb (12.0-16.0) g/dL Hct (36.0-46.0) % MCV (80.0-98.0) fL MCH (27.0-32.0) pg MCHC (31.0-37.0) g/dL RDW Std Deviation (28.0-62.0) fl RDW Coeff of Micah (11.0-15.0) % Plt Count (150-400) K/uL MPV (7.40-12.00) fL Neut % (Auto) (48.0-80.0) % Lymph % (Auto) (16.0-40.0) % Burt % (Auto) (0.0-15.0) % Eos % (Auto) (0.0-7.0) % Baso % (Auto) (0.0-1.5) % Neut # (Auto) (1.4-5.7) K/uL Lymph # (Auto) (0.6-2.4) K/uL Burt # (Auto) (0.0-0.8) K/uL Eos # (Auto) (0.0-0.7) K/uL Baso # (Auto) (0.0-0.1) K/uL Nucleated RBC % /100WBC Nucleated RBCs # K/uL Sodium (136-145) mmol/L Potassium (3.5-5.1) mmol/L Chloride (98-107) mmol/L Carbon Dioxide (21.0-32.0) mmol/L BUN (7.0-18.0) mg/dL Creatinine (0.6-1.0) mg/dL Est Cr Clr Drug Dosing mL/min Estimated GFR (MDRD) ml/min Glucose (74-106) mg/dL Calcium (8.5-10.1) mg/dL Magnesium (1.8-2.4) mg/dL Total Bilirubin (0.2-1.0) mg/dL AST (15-37) IU/L ALT (14-63) IU/L Alkaline Phosphatase (46-116) U/L Total Protein (6.4-8.2) g/dL Albumin (3.4-5.0) g/dL Globulin (2.6-4.0) g/dL Albumin/Globulin Ratio (0.9-1.6) Lipase (73-393) U/L Free T4 0.61 L (0.76-1.46) ng/dL Free T3 2.22 (2.18-3.98) pg/mL TSH, Ultra Sensitive (0.36-3.74) uIU/mL HCG, Qual (NEG) Urine Color Urine Appearance Urine pH (5.0-8.0) Ur Specific Salem (1.001-1.035) Urine Protein (NEGATIVE) mg/dL Urine Glucose (UA) (NEGATIVE) mg/dL Urine Ketones (NEGATIVE) mg/dL Urine Occult Blood (NEGATIVE) Urine Nitrite (NEGATIVE) Urine Bilirubin (NEGATIVE) Urine Urobilinogen (<2.0) EU/dL Ur Leukocyte Esterase (NEGATIVE) Urine RBC (0-2/HPF) Urine WBC (0-5/HPF) Ur Epithelial Cells (NONE-FEW) Urine Bacteria (NEGATIVE) Salicylates 0.5 (0-20) mg/dL Urine Opiates Screen (NEGATIVE) Ur Oxycodone Screen (NEGATIVE) Urine Methadone Screen (NEGATIVE) Acetaminophen <2.0 ug/mL Ur Barbiturates Screen (NEGATIVE) Ur Phencyclidine Scrn (NEGATIVE) Ur Amphetamine Screen (NEGATIVE) U Methamphetamines Scrn (NEGATIVE) U Benzodiazepines Scrn (NEGATIVE) U Cocaine Metab Screen (NEGATIVE) U Marijuana (THC) Screen (NEGATIVE) Ethyl Alcohol mg/dL SARS-CoV-2 RNA (IBETH) (NEGATIVE) Meds: Medications Generic Name Dose Route Start Last Admin Trade Name Freq PRN Reason Stop Dose Admin Sodium Chloride 10 ml 05/26/21 23:39 05/26/21 23:57 Sodium Chloride 0.9% 10 Ml Syringe FLUSH 10 ml ASDIRECTED PRN Administration Keep Vein Open Sodium Chloride 2.5 ml 05/26/21 23:39 05/26/21 23:57 Sodium Chloride 0.9% 2.5 Ml Syringe FLUSH 2.5 ml ASDIRECTED PRN Administration Keep Vein Open Discontinued Medications Generic Name Dose Route Start Last Admin Trade Name Cee PRN Reason Stop Dose Admin Sodium Chloride 1,000 mls @ 999 mls/hr 05/26/21 23:39 05/26/21 23:57 Normal Saline IV 05/27/21 00:39 999 mls/hr .Bolus ONE Administration Ondansetron HCl 4 mg 05/27/21 01:42 05/27/21 01:51 Ondansetron 4 Mg/2 Ml Sdv IVPUSH 05/27/21 01:43 4 mg ONETIME ONE Administration Potassium Chloride 40 meq 05/27/21 01:01 05/27/21 01:17 Potassium Chloride 20 Meq Tab.Er PO 05/27/21 01:02 40 meq ONETIME ONE Administration - Re-Assessments/Exams Free Text/Narrative Re-Assessment/Exam: 05/27/21 01:43 Potassium is causing her some indigestion. See orders Free Text/Narrative Re-Assessment/Exam: 05/27/21 02:45 Despite patient's legal intoxication with an alcohol level of almost 403 hours ago the patient appears sober and can walk with a steady gait. Discussed with Dr. Smith and she accepted the patient at [facility]. Departure - Departure Time of Disposition: 03:00 Disposition: DC/Tfer to Psych Hosp/Unit [facility] Condition: Good Clinical Impression: Depression, Suicidal ideation, Alcohol intoxication, Alcohol abuse with alcohol-induced mood disorder, Hypokalemia, Hypothyroidism - Discharge Information Referrals: PCP,None [Primary Care Provider] - Sepsis Event Note (ED) - Focused Exam Vital Signs: Vital Signs Temp Pulse Resp BP Pulse Ox 05/27/21 02:30 91 16 104/59 L 94 L 05/27/21 02:00 95 16 106/65 94 L 05/27/21 01:30 100 18 120/73 96 05/27/21 01:00 86 18 119/83 95 05/27/21 00:30 97 18 126/85 97 05/27/21 00:00 95 18 125/84 97 05/26/21 23:46 36.8 C 111 H 20 156/108 H 97 - My Orders Last 24 Hours: My Active Orders 05/26/21 23:39 Sodium Chloride 0.9% [Saline Flush] 10 ml FLUSH ASDIRECTED PRN Sodium Chloride 0.9% [Saline Flush] 2.5 ml FLUSH ASDIRECTED PRN Saline Lock Insert [OM.PC] Stat 05/27/21 02:33 CULTURE URINE [MREF] Stat - Assessment/Plan Last 24 Hours: My Active Orders 05/26/21 23:39 Sodium Chloride 0.9% [Saline Flush] 10 ml FLUSH ASDIRECTED PRN Sodium Chloride 0.9% [Saline Flush] 2.5 ml FLUSH ASDIRECTED PRN Saline Lock Insert [OM.PC] Stat 05/27/21 02:33 CULTURE URINE [MREF] Stat
[2021-05-27 00:34] LABS: BLOOD UREA NITROGEN,BUN 3 mg/dL (7.0-18.0); CARBON DIOXIDE,CO2 29.6 mmol/L (21.0-32.0); CHLORIDE,CL 100 mmol/L (98-107); GLUCOSE RANDOM 144 mg/dL (74-106); LIPASE 66 U/L (73-393); POTASSIUM,K 2.9 mmol/L (3.5-5.1); SODIUM,NA 143 mmol/L (136-145)
[2021-05-27 00:52] LABS: ACETAMINOPHEN <2.0 ug/mL
[2021-05-27] MEDS ORDERED: Potassium Chloride 20 MEQ Tab.ER PO ONE (01:01)
--- NOTE | 2021-05-27 01:13 | CR ---
Indication: Injury, pain Technique: Three views of the left shoulder Comparison: None Findings: There is no evidence of acute fracture. The glenohumeral and acromioclavicular joints are normally located. The surrounding soft tissues are unremarkable. The visualized thoracic structures are intact. Impression: No acute abnormality. Dictated by Jaleesa Naidu MD @ 05/27/2021 1:10:43 AM (Electronically Signed)
[2021-05-27] MEDS ORDERED: Aluminum Hydroxide/Magnesium Hydroxide/Simethicone XS Susp 30 ML Cup PO ONE (01:42)
[2021-05-27] MEDS ORDERED: Ondansetron 4 MG/2 ML SDV IVPUSH ONE (01:42)
== END 2021-05-27 03:00 ==
LOC: MW.ED 23:35
DX: F32.A Depression, unspecified (principal); E87.6 Hypokalemia; E03.9 Hypothyroidism, unspecified; F10.129 Alcohol abuse with intoxication, unspecified; F10.14 Alcohol abuse with alcohol-induced mood disorder; R00.0 Tachycardia, unspecified; Z20.822 Contact with and (suspected) exposure to COVID-19
CPT/HCPCS: 36415; 73030; 80053; 80143; 80179; 80305; 80307; 81001; 83690; 83735; 84439; 84443; 84481; 84703; 85025; 87086; 87635; 93005; 96374; 99285; A9270; J2405; J7030; 87088; 87186; U0002

== ENCOUNTER 2021-07-03 16:08 | Emergency (ER) | payer SELFPAY ==
--- NOTE | 2021-07-03 16:14 | EDM.PDOC ---
ED HPI GENERAL MEDICAL PROBLEM - General Stated Complaint: MEDICAL CLEARANCE Time Seen by Provider: 07/03/21 16:14 Source of Information: Reports: Patient, Police History Limitations: Reports: No Limitations - History of Present Illness INITIAL COMMENTS - FREE TEXT/NARRATIVE: HISTORY AND PHYSICAL: History of present illness: Patient is a 36-year-old female who presents to the emergency room by [facility] for medical screening exam. Patient states she takes medication for thyroid and was once told she was prediabetic although does not take any medications for this. She currently offers no complaints or concerns and is minimally interactive to my questioning. Patient denies any fever, chills, headache, change in vision, syncope or near syncope. Denies any chest pain, back pain, shortness of breath or cough. Denies any GI or symptoms. Patient has been eating and drinking appropriately. Review of systems: As per history of present illness and below otherwise all systems reviewed and n egative. Past medical history: As per history of present illness and as reviewed below otherwise noncontributory. Surgical history: As per history of present illness and as reviewed below otherwise noncontributory. Social history: See social history for further information Family history: As per history of present illness and as reviewed below otherwise noncontributory. Physical exam: General: Well developed and well nourished. Alert and orientated x 3. Answering questions appropriately. Nontoxic in appearance and in no acute distress. Vital signs are stable and have been reviewed by me. Nursing notes were reviewed. Accompanied by law enforcement. HEENT: Atraumatic, normocephalic, pupils equal and reactive bilaterally, negative for conjunctival pallor or scleral icterus, mucous membranes moist, trachea midline. No drooling or trismus noted. No meningeal signs. No hot potato voice noted. Lungs: Clear to auscultation, breath sounds equal bilaterally. Normal work of breathing, no accessory muscles used. Heart: S1S2, regular rate and rhythm without overt murmur Abdomen: Soft, nondistended, nontender. Negative for masses or costovertebral tenderness. Skin: Intact, warm, dry. No lesions or rashes noted. Hematologic: No petechiae or purpra. Mucosa appropriate color and normal nail bed color and refill. Extremities: Ambulatory, moves all extremities per self without difficulty or deficits. Neurovascular unremarkable. Neuro: Awake, alert, oriented. Cranial nerves II through XII unremarkable. Cerebellum unremarkable. Motor and sensory unremarkable throughout. Exam nonfocal. Psychiatric: Mood and affect are appropriate. Normal thought process. Answering questions appropriately. Please note that the patient was seen and evaluated during the 2019 SARS-CoV-2 novel coronavirus pandemic period. Community viral transmission is ongoing at time of this encounter and the emergency department is operating under pandemic response procedures. Medical Decision Making: Law enforcement has no specific concerns for today's ER visit. 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 Patient states she see's [facility] next month for mental health services, but is not suicidal or having any undesirable thoughts. Reassessment at the time of disposition demonstrates that the patient is in no acute distress. The patient is stable for discharge, counseling was provided and we discussed in great detail signs and symptoms that would prompt them to return to the Emergency Department. Medication, follow up and supportive care measures were reviewed and discussed. Voices understanding and is agreeable to plan of care. Denies any further questions or concerns at this time. Diagnostics: Blood glucose Therapeutics: None Prescription: None Impression: Encounter for medical screening Plan: 1. Today your physical exam and vital signs are within normal limits. 2. We encourage you to follow up with your primary care provider and/or recommended specialist in the next few days for re-evaluation and further care/management. 3. If you should develop symptoms or feel the need to be evaluated in the emergency department - please feel free to return or call 911 if necessary. Definitive disposition and diagnosis as appropriate pending reevaluation and review of above. - Related Data Allergies Allergy/AdvReac Type Severity Reaction Status Date / Time No Known Allergies Allergy Verified 07/03/21 16:39 Home Meds: Home Meds . [No Known Home Meds] 05/26/21 [History] Past Medical History - Past Health History Medical/Surgical History: Denies Medical/Surgical History Endocrine/Metabolic History: Reports: Hypothyroidism Other Oncologic History: Pt states she has "cancer affecting her whole body." - Infectious Disease History Infectious Disease History: Reports: None Social & Family History - Family History Family Medical History: No Pertinent Family History - Caffeine Use Caffeine Use: Reports: None ED ROS GENERAL - Review of Systems Review Of Systems: Comprehensive ROS is negative, except as noted in HPI. ED EXAM, GENERAL - Physical Exam Exam: See Below (See dictation) Course - Vital Signs Last Recorded V/S: Last Vital Signs Temp 97.5 F 07/03/21 16:37 Pulse 84 07/03/21 16:37 Resp 20 07/03/21 16:37 BP 107/72 07/03/21 16:37 Pulse Ox 96 07/03/21 16:37 - Orders/Labs/Meds Orders: Active Orders 24 hr Category Date Time Status Glucose [Blood Glucose Check, Bedside] [RC] ONETIME Care 07/03/21 16:35 Active Departure - Departure Time of Disposition: 16:41 Disposition: Home, Self-Care 01 Clinical Impression: Encounter for medical screening examination - Discharge Information Instructions: Health Maintenance, Female Additional Instructions: The following information is given to patients seen in the emergency department who are being discharged to home. This information is to outline your options for follow-up care. We provide all patients seen in our emergency department with a follow-up referral. The need for follow-up, as well as the timing and circumstances, are variable depending upon the specifics of your emergency department visit. If you don't have a primary care physician on staff, we will provide you with a referral. We always advise you to contact your personal physician following an emergency department visit to inform them of the circumstance of the visit and for follow-up with them and/or the need for any referrals to a consulting specialist. The emergency department will also refer you to a specialist when appropriate. This referral assures that you have the opportunity for follow-up care with a specialist. All of these measure are taken in an effort to provide you with optimal care, which includes your follow-up. Under all circumstances we always encourage you to contact your private physician who remains a resource for coordinating your care. When calling for follow-up care, please make the office aware that this follow-up is from your recent emergency room visit. If for any reason you are refused follow-up, please contact the [facility] Emergency Department at and asked to speak to the emergency department charge nurse. [facility] [address] [place] [id number] [facility] [address] [place] [address] Thank you for choosing the [facility] emergency department in [place] for your medical needs today. It was a pleasure caring for you. Today you were seen in the emergency department for medical screening. 1. Today your physical exam and vital signs are within normal limits. 2. We encourage you to follow up with your primary care provider and/or recommended specialist in the next few days for re-evaluation and further care/management. 3. If you should develop symptoms or feel the need to be evaluated in the emergency department - please feel free to return or call 911 if necessary. Sepsis Event Note (ED) - Focused Exam Vital Signs: Vital Signs Temp Pulse Resp BP Pulse Ox 07/03/21 16:37 97.5 F 84 20 107/72 96 - My Orders Last 24 Hours: My Active Orders 07/03/21 16:35 Glucose [Blood Glucose Check, Bedside] [RC] ONETIME - Assessment/Plan Last 24 Hours: My Active Orders 07/03/21 16:35 Glucose [Blood Glucose Check, Bedside] [RC] ONETIME
== END 2021-07-03 17:09 | disposition home or self-care (01) ==
LOC: MW.ED 16:08
DX: Z02.89 Encounter for other administrative examinations (principal); E03.9 Hypothyroidism, unspecified
CPT/HCPCS: 82947; 99283

== ENCOUNTER 2021-07-07 16:18 | Emergency (ER) | payer SELFPAY ==
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
== END 2021-07-07 18:17 | disposition home or self-care (01) ==
LOC: MW.ED 16:18
DX: S09.90XA Unspecified injury of head, initial encounter (principal); E03.9 Hypothyroidism, unspecified; Z79.899 Other long term (current) drug therapy; Y04.0XXA Assault by unarmed brawl or fight, initial encounter
CPT/HCPCS: 70450; 70450-26; 99284-25

== ENCOUNTER 2021-10-21 15:41 | Emergency (ER) | payer MEDICAID ==
[2021-10-21 16:27] LABS: ACETAMINOPHEN <2.0 ug/mL; BLOOD UREA NITROGEN,BUN 6 mg/dL (7.0-18.0); CHLORIDE,CL 96 mmol/L (98-107); GLUCOSE RANDOM 266 mg/dL (74-106); POTASSIUM,K 3.5 mmol/L (3.5-5.1); SODIUM,NA 135 mmol/L (136-145)
[2021-10-21] MEDS ORDERED: LORazepam 0.5 MG Tab PO ONE (17:19)
== END 2021-10-21 20:15 ==
LOC: MW.ED 15:41
DX: S61.512A Laceration without foreign body of left wrist, initial encounter (principal); S50.812A Abrasion of left forearm, initial encounter; S50.811A Abrasion of right forearm, initial encounter; F10.10 Alcohol abuse, uncomplicated; E03.9 Hypothyroidism, unspecified; Z79.899 Other long term (current) drug therapy; Y90.8 Blood alcohol level of 240 mg/100 ml or more; Z20.822 Contact with and (suspected) exposure to COVID-19; X78.9XXA Intentional self-harm by unspecified sharp object, initial encounter
CPT/HCPCS: 36415; 80053; 80143; 80179; 80307; 85025; 87635; 99285; A9270; 99284; U0002

== ENCOUNTER 2021-10-28 03:47 | Emergency (ER) | payer MEDICAID ==
[2021-10-28] MEDS ORDERED: Sodium Chloride 0.9% 1,000 ML IV ONE (04:01)
[2021-10-28] MEDS ORDERED: Lidocaine 2% Viscous Solution 100 ML Bottle PO ONE (04:04)
[2021-10-28] MEDS ORDERED: Lidocaine 2% Viscous Solution 15 ML UD ONE (04:08)
[2021-10-28] MEDS ORDERED: Lidocaine 2% Viscous Solution 15 ML UD PO ONE (04:13)
[2021-10-28 04:58] LABS: BLOOD UREA NITROGEN,BUN 8 mg/dL (7.0-18.0); CARBON DIOXIDE,CO2 27.7 mmol/L (21.0-32.0); CHLORIDE,CL 99 mmol/L (98-107); GLUCOSE RANDOM 122 mg/dL (74-106); POTASSIUM,K 2.6 mmol/L (3.5-5.1); SODIUM,NA 139 mmol/L (136-145)
[2021-10-28] MEDS ORDERED: Potassium Chloride 20 MEQ Tab.ER PO ONE (04:59)
== END 2021-10-28 05:14 | disposition home or self-care (01) ==
LOC: MW.ED 03:47
DX: B37.0 Candidal stomatitis (principal); F10.129 Alcohol abuse with intoxication, unspecified; E87.6 Hypokalemia; E03.9 Hypothyroidism, unspecified; Z79.899 Other long term (current) drug therapy; Y90.6 Blood alcohol level of 120-199 mg/100 ml
CPT/HCPCS: 36415; 71045; 80053; 80307; 85025; 99285; A9270; J7030

== ENCOUNTER 2021-11-26 21:39 | Emergency (ER) | payer MEDICAID ==
[2021-11-26] MEDS ORDERED: LORazepam 2 MG/ML SDV IM ONE (22:23)
[2021-11-26] MEDS ORDERED: Ondansetron 4 MG Tab.DIS PO ONE (22:38)
== END 2021-11-26 23:24 | disposition home or self-care (01) ==
LOC: MW.ED 21:39
DX: F41.9 Anxiety disorder, unspecified (principal); F10.10 Alcohol abuse, uncomplicated; E03.9 Hypothyroidism, unspecified; Z79.899 Other long term (current) drug therapy
CPT/HCPCS: 93005; 96372; 99283; A9270; J2060; 93010

== ENCOUNTER 2021-11-28 16:27 | Emergency (ER) | payer MEDICAID ==
[2021-11-28] MEDS ORDERED: Sodium Chloride 0.9% 2.5 ML Syringe FLUSH PRN (16:30)
[2021-11-28] MEDS ORDERED: Sodium Chloride 0.9% 10 ML Syringe FLUSH PRN (16:30)
[2021-11-28] MEDS ORDERED: LORazepam 2 MG/ML SDV IVPUSH ONE (16:30)
[2021-11-28] MEDS ORDERED: Sodium Chloride 0.9% 1,000 ML IV ONE ×2 (16:30→17:43)
[2021-11-28 17:23] LABS: BLOOD UREA NITROGEN,BUN 11 mg/dL (7.0-18.0); CARBON DIOXIDE,CO2 25.9 mmol/L (21.0-32.0); CHLORIDE,CL 97 mmol/L (98-107); GLUCOSE RANDOM 165 mg/dL (74-106); LIPASE 177 U/L (73-393); POTASSIUM,K 3.2 mmol/L (3.5-5.1); SODIUM,NA 136 mmol/L (136-145)
[2021-11-28] MEDS ORDERED: MVI, Adult with Vitamin K 10 ML, Thiamine 100 MG, Folic Acid 1 MG in Sodium Chloride 0.... IV ONE ×4 (17:31)
== END 2021-11-28 19:55 | disposition left against medical advice (07) ==
LOC: MW.ED 16:27
DX: F41.9 Anxiety disorder, unspecified (principal); F10.129 Alcohol abuse with intoxication, unspecified; E87.6 Hypokalemia; E03.9 Hypothyroidism, unspecified; Z79.899 Other long term (current) drug therapy; Y90.8 Blood alcohol level of 240 mg/100 ml or more
CPT/HCPCS: 36415; 71045; 80053; 80307; 83690; 83735; 84439; 84443; 84481; 84484; 85025; 93005; 96361; 96374; 99285; J2060; J7030; 93010; 99284

== ENCOUNTER 2021-11-29 17:55 | Emergency (ER) | payer MEDICAID ==
[2021-11-29] MEDS ORDERED: Sodium Chloride 0.9% 1,000 ML IV ONE (17:57)
[2021-11-29 18:48] LABS: BLOOD UREA NITROGEN,BUN 4 mg/dL (7.0-18.0); CHLORIDE,CL 102 mmol/L (98-107); GLUCOSE RANDOM 166 mg/dL (74-106); POTASSIUM,K 3.3 mmol/L (3.5-5.1); SODIUM,NA 138 mmol/L (136-145)
== END 2021-11-29 18:28 | disposition left against medical advice (07) ==
LOC: MW.ED 17:55
DX: F10.129 Alcohol abuse with intoxication, unspecified (principal); E03.9 Hypothyroidism, unspecified; Z53.8 Procedure and treatment not carried out for other reasons; Z79.899 Other long term (current) drug therapy; Z86.16 Personal history of COVID-19; Y90.8 Blood alcohol level of 240 mg/100 ml or more
CPT/HCPCS: 36415; 80053; 80307; 85025; 99282; 99284

== ENCOUNTER 2021-12-01 15:08 | Emergency (ER) | payer MEDICAID ==
[2021-12-01] MEDS ORDERED: Sodium Chloride 0.9% 1,000 ML IV ONE (16:46)
[2021-12-01] MEDS ORDERED: Ondansetron 4 MG/2 ML SDV IVPUSH ONE ×2 (17:04→19:42)
[2021-12-01 17:51] LABS: ACETAMINOPHEN <2.0 ug/mL; BLOOD UREA NITROGEN,BUN 14 mg/dL (7.0-18.0); CHLORIDE,CL 99 mmol/L (98-107); GLUCOSE RANDOM 142 mg/dL (74-106); LIPASE 180 U/L (73-393); POTASSIUM,K 3.4 mmol/L (3.5-5.1); SODIUM,NA 139 mmol/L (136-145)
[2021-12-01 17:58] LABS: ESTIMATED GFR > 60.0 ml/min
[2021-12-01] MEDS ORDERED: Magnesium Sulfate (4.06 MEQ/ML) 5 GM/10 ML SDV IV STA (19:41)
[2021-12-01] MEDS ORDERED: Magnesium Sulfate/Water 50 ML ONE (20:08)
== END 2021-12-02 00:43 ==
LOC: MW.ED 15:08
DX: F10.129 Alcohol abuse with intoxication, unspecified (principal); E83.42 Hypomagnesemia; E03.9 Hypothyroidism, unspecified; Z79.899 Other long term (current) drug therapy; Z86.16 Personal history of COVID-19; Z20.822 Contact with and (suspected) exposure to COVID-19; Y90.8 Blood alcohol level of 240 mg/100 ml or more
CPT/HCPCS: 36415; 80053; 80143; 80179; 80305; 80307; 81003; 83690; 83735; 84443; 84481; 84703; 85025; 87635; 96361; 96365; 96375; 96376; 99285; J2405; J3475; J3490; J7030; 99284; U0002